=== PATIENT | male | born 1940 | race Caucasian/White ===

== ENCOUNTER 2022-04-14 06:31 | Inpatient (IN) | payer MEDICARE, OTHER ==
[2022-04-14] MEDS ORDERED: Acetaminophen 650 MG Supp ONE (06:46)
[2022-04-14] MEDS ORDERED: Acetaminophen 650 MG Supp RECTAL ONE (07:18)
[2022-04-14 07:42] LABS: CHLORIDE,CL 102 mEq/L (98-106); SODIUM,NA 138 mEq/L (136-145)
[2022-04-14 07:49] LABS: ESTIMATED GFR 55 mL/min (>=60)
[2022-04-14] MEDS ORDERED: Sodium Chloride 0.9% 1,000 ML IV STA (07:50)
[2022-04-14] MEDS ORDERED: cefTRIAXone 1 GM Vial IVPUSH ONE (08:03)
[2022-04-14 08:23] LABS: CORONAVIRUS COVID-19 NAA POSITIVE (NEGATIVE)
[2022-04-14] MEDS ORDERED: Sodium Chloride 0.9% 500 ML IV STA (08:36)
[2022-04-14] MEDS ORDERED: Acetaminophen 325 MG Tab PO PRN (10:00)
[2022-04-14] MEDS ORDERED: Ondansetron 4 MG/2 ML SDV IV PRN (10:00)
[2022-04-14] MEDS ORDERED: Ibuprofen 200 MG Tab PO PRN (10:00)
[2022-04-14] MEDS ORDERED: ALPRAZolam 0.25 MG Tab PO PRN (10:12)
[2022-04-14] MEDS ORDERED: REMDESIVIR 200 MG in Sodium Chloride 0.9% 250 ML IV ONE (10:12)
[2022-04-14] MEDS: Dexamethasone 4 MG Tab PO SCH (10:48)
[2022-04-14] MEDS: Metoprolol Succinate 25 MG Tab.ER PO SCH (10:49)
[2022-04-14] MEDS: Carbidopa/Levodopa 25-100 MG Tab PO SCH ×3 (11:03→20:50)
[2022-04-14] MEDS: Pantoprazole 40 MG Tab.CR PO SCH (11:53)
[2022-04-14] MEDS: Azithromycin 500 MG in Sodium Chloride 0.9% 250 ML IV SCH (11:53)
[2022-04-14] MEDS: Pramipexole 0.5 MG Tab PO SCH ×2 (17:49→19:39)
[2022-04-14] MEDS: Simvastatin 20 MG Tab PO SCH (20:50)
[2022-04-14] MEDS: Polyethylene Glycol 3350 Powder 17 GM Packet PO SCH (20:50)
[2022-04-14] MEDS: Enoxaparin 40 MG/0.4 ML Syringe SUBCUT SCH (20:50)
[2022-04-15] MEDS ORDERED: Non-Formulary Medication 1 Each (Niacin [Niacin] 500 MG Tablet) PO SCH (08:00)
[2022-04-15] MEDS ORDERED: Polyethylene Glycol 3350 Powder 17 GM Packet PO SCH (08:00)
[2022-04-15] MEDS: Polyethylene Glycol 3350 Powder 17 GM Packet PO SCH ×2 (08:23→20:05)
[2022-04-15] MEDS: Pantoprazole 40 MG Tab.CR PO SCH (08:23)
[2022-04-15] MEDS: Pramipexole 0.5 MG Tab PO SCH ×3 (08:24→20:06)
[2022-04-15] MEDS: Multivitamin Tab PO SCH (08:24)
[2022-04-15] MEDS: Dexamethasone 4 MG Tab PO SCH (08:24)
[2022-04-15] MEDS: Metoprolol Succinate 25 MG Tab.ER PO SCH (08:25)
[2022-04-15] MEDS: Aspirin 81 MG Tab.Chew PO SCH (08:25)
[2022-04-15] MEDS: Vitamin E (dl-alpha-tocopherol acetate) 400 Unit Cap PO SCH (08:25)
[2022-04-15] MEDS: REMDESIVIR 100 MG in Sodium Chloride 0.9% 100 ML IV SCH (08:26)
[2022-04-15] MEDS: Carbidopa/Levodopa 25-100 MG Tab PO SCH ×4 (08:28→20:03)
[2022-04-15] MEDS: cefTRIAXone 1 GM Vial IVPUSH SCH (09:56)
[2022-04-15] MEDS: Azithromycin 500 MG in Sodium Chloride 0.9% 250 ML IV SCH (09:56)
[2022-04-15 11:49] LABS: CHLORIDE,CL 105 mEq/L (98-106); SODIUM,NA 141 mEq/L (136-145)
[2022-04-15 11:58] LABS: ESTIMATED GFR 67 mL/min (>=60)
[2022-04-15] MEDS: Enoxaparin 40 MG/0.4 ML Syringe SUBCUT SCH (20:03)
[2022-04-16] MEDS: Dexamethasone 4 MG Tab PO SCH (07:38)
[2022-04-16] MEDS: Aspirin 81 MG Tab.Chew PO SCH (07:38)
[2022-04-16] MEDS: Metoprolol Succinate 25 MG Tab.ER PO SCH (07:39)
[2022-04-16] MEDS: Carbidopa/Levodopa 25-100 MG Tab PO SCH ×4 (07:39→19:45)
[2022-04-16] MEDS: Pramipexole 0.5 MG Tab PO SCH ×3 (07:39→19:43)
[2022-04-16] MEDS: Multivitamin Tab PO SCH (07:40)
[2022-04-16] MEDS: REMDESIVIR 100 MG in Sodium Chloride 0.9% 100 ML IV SCH (07:40)
[2022-04-16] MEDS: Pantoprazole 40 MG Tab.CR PO SCH (07:40)
[2022-04-16] MEDS: Vitamin E (dl-alpha-tocopherol acetate) 400 Unit Cap PO SCH (07:40)
[2022-04-16] MEDS: Polyethylene Glycol 3350 Powder 17 GM Packet PO SCH ×2 (07:41→19:45)
[2022-04-16] MEDS: Lisinopril 20 MG Tab PO SCH ×2 (08:32→19:46)
[2022-04-16] MEDS: cefTRIAXone 1 GM Vial IVPUSH SCH (09:48)
[2022-04-16] MEDS: Azithromycin 500 MG in Sodium Chloride 0.9% 250 ML IV SCH (09:49)
[2022-04-16] MEDS: Simvastatin 20 MG Tab PO SCH (19:45)
[2022-04-16] MEDS: Enoxaparin 40 MG/0.4 ML Syringe SUBCUT SCH (19:45)
[2022-04-16] MEDS: guaiFENesin 100 MG/5 ML Soln 5 ML UD Cup PO PRN (20:19)
[2022-04-17] MEDS: REMDESIVIR 100 MG in Sodium Chloride 0.9% 100 ML IV SCH (08:57)
[2022-04-17] MEDS: Vitamin E (dl-alpha-tocopherol acetate) 400 Unit Cap PO SCH (08:58)
[2022-04-17] MEDS: Carbidopa/Levodopa 25-100 MG Tab PO SCH ×4 (08:58→19:15)
[2022-04-17] MEDS: Polyethylene Glycol 3350 Powder 17 GM Packet PO SCH ×2 (08:58→19:15)
[2022-04-17] MEDS: Lisinopril 20 MG Tab PO SCH ×2 (08:59→19:15)
[2022-04-17] MEDS: Metoprolol Succinate 25 MG Tab.ER PO SCH (08:59)
[2022-04-17] MEDS: Dexamethasone 4 MG Tab PO SCH (08:59)
[2022-04-17] MEDS: Pantoprazole 40 MG Tab.CR PO SCH (08:59)
[2022-04-17] MEDS: Aspirin 81 MG Tab.Chew PO SCH (08:59)
[2022-04-17] MEDS: Multivitamin Tab PO SCH (08:59)
[2022-04-17] MEDS: Pramipexole 0.5 MG Tab PO SCH ×3 (09:00→19:15)
[2022-04-17] MEDS: cefTRIAXone 1 GM Vial IVPUSH SCH (09:03)
[2022-04-17] MEDS: Azithromycin 500 MG in Sodium Chloride 0.9% 250 ML IV SCH (09:35)
[2022-04-17] MEDS: Enoxaparin 40 MG/0.4 ML Syringe SUBCUT SCH (19:15)
[2022-04-17] MEDS: guaiFENesin 100 MG/5 ML Soln 5 ML UD Cup PO PRN (21:21)
[2022-04-18] MEDS: REMDESIVIR 100 MG in Sodium Chloride 0.9% 100 ML IV SCH (08:02)
[2022-04-18] MEDS: Carbidopa/Levodopa 25-100 MG Tab PO SCH ×2 (08:06→11:00)
[2022-04-18] MEDS: Pramipexole 0.5 MG Tab PO SCH (08:07)
[2022-04-18] MEDS: Multivitamin Tab PO SCH (08:09)
[2022-04-18] MEDS: Dexamethasone 4 MG Tab PO SCH (08:09)
[2022-04-18] MEDS: Polyethylene Glycol 3350 Powder 17 GM Packet PO SCH (08:10)
[2022-04-18] MEDS: Aspirin 81 MG Tab.Chew PO SCH (08:10)
[2022-04-18] MEDS: Pantoprazole 40 MG Tab.CR PO SCH (08:11)
[2022-04-18] MEDS: Vitamin E (dl-alpha-tocopherol acetate) 400 Unit Cap PO SCH (08:12)
[2022-04-18] MEDS: Metoprolol Succinate 25 MG Tab.ER PO SCH (08:32)
[2022-04-18] MEDS: Lisinopril 20 MG Tab PO SCH (08:33)
[2022-04-18] MEDS: Azithromycin 500 MG in Sodium Chloride 0.9% 250 ML IV SCH (10:53)
[2022-04-18] MEDS: cefTRIAXone 1 GM Vial IVPUSH SCH (10:54)
== END 2022-04-18 13:00 | disposition home or self-care (01) | DRG 177 ==
LOC: CC.ED 06:31 → UNDOADMIN 09:20 → CC.MS 09:20
PROVIDERS: ADMIT Nurse Practitioner Family; ATTEND Nurse Practitioner Family
PROC: XW033E5 Introduction of Remdesivir Anti-infective into Peripheral Vein, Percutaneous Approach, New Technology Group 5 (ICD-10-PCS; principal; 2022-04-14)
PROC: 3E0333Z Introduction of Anti-inflammatory into Peripheral Vein, Percutaneous Approach (ICD-10-PCS; 2022-04-14)
DX: U07.1 COVID-19 (principal); J18.9 Pneumonia, unspecified organism; I10 Essential (primary) hypertension; E78.5 Hyperlipidemia, unspecified; G20 Parkinson's disease; D72.829 Elevated white blood cell count, unspecified; T38.0X5A Adverse effect of glucocorticoids and synthetic analogues, initial encounter; Z79.82 Long term (current) use of aspirin; Z79.899 Other long term (current) drug therapy
CPT/HCPCS: 0240U; 36415; 71045; 80053; 81001; 82248; 83605; 83735; 85025; 87040; 87070; 87205; 93010; 96361; 96374; 97110-GP; 97161-GP; 99223; 99232; 99233; 99238; 99285-25; A9270-GY; J0456; J0696; J1650; J7030; J7050; J8540

== ENCOUNTER 2023-06-16 10:13 | Emergency (ER) | payer MEDICARE, OTHER ==
[2023-06-16] MEDS ORDERED: fentaNYL 50 MCG/ML SDV IVPUSH ONE ×2 (12:18→13:50)
[2023-06-16] MEDS ORDERED: Naloxone 2 MG/2 ML Syringe IVPUSH PRN (12:18)
== END 2023-06-16 13:55 ==
LOC: CC.ED 10:13
DX: S72.142A Displaced intertrochanteric fracture of left femur, initial encounter for closed fracture (principal); I10 Essential (primary) hypertension; E78.00 Pure hypercholesterolemia, unspecified; K21.9 Gastro-esophageal reflux disease without esophagitis; Z87.891 Personal history of nicotine dependence; Z79.899 Other long term (current) drug therapy; W01.0XXA Fall on same level from slipping, tripping and stumbling without subsequent striking against object, initial encounter; Y93.01 Activity, walking, marching and hiking; Y92.015 Private garage of single-family (private) house as the place of occurrence of the external cause
CPT/HCPCS: 51702; 71101-LT; 96374; 96376; 99284; 99285-25; J3010

== ENCOUNTER 2023-06-26 19:29 | Inpatient (IN) | payer MEDICARE, OTHER ==
[2023-06-26] MEDS ORDERED: Albuterol/Ipratropium 3.0-0.5 MG/3 ML Neb Soln NEB ONE (19:31)
[2023-06-26] MEDS ORDERED: Sodium Chloride 0.9% 1,000 ML IV ONE (19:31)
[2023-06-26] MEDS ORDERED: Piperacillin/Tazobactam 4.5 GM in Sodium Chloride 0.9% 100 ML IV ONE (19:31)
[2023-06-26 20:22] LABS: BASOPHILS ABSOLUTE AUTO 0.03 10^3/uL (0.00-0.50); BASOPHILS PERCENT AUTO 0.2 % (0-1); EOSINOPHILS ABSOLUTE AUTO 0.01 10^3/uL (0.00-1.50); EOSINOPHILS PERCENT AUTO 0.1 % (0-6); HEMATOCRIT 28.2 % (42.0-52.0); IMMATURE GRAN ABSOLUTE AUTO 0.04 10^3/uL (0.00-0.49); IMMATURE GRAN PERCENT AUTO 0.2 % (0.0-4.9); LYMPHOCYTES ABSOLUTE AUTO 0.64 10^3/uL (0.60-5.00); LYMPHOCYTES PERCENT AUTO 3.9 % (24-44); MEAN CORPUSCULAR HEMOGLOBIN 30.8 pg (27.0-32.0); MEAN CORPUSCULAR HGB CONC 31.9 g/dL (32.0-36.0); MEAN CORPUSCULAR VOLUME 96.6 fL (83.0-97.0); MONOCYTES ABSOLUTE AUTO 0.52 10^3/uL (0.00-1.50); MONOCYTES PERCENT AUTO 3.2 % (0-10); NEUTROPHILS ABSOLUTE AUTO 15.26 x10^3/uL (1.80-8.00); NEUTROPHILS PERCENT AUTO 92.4 % (41-71); PLATELET COUNT,PLT 468 10^3/uL (150-400); RED BLOOD CELL COUNT 2.92 x10^6/uL (4.50-6.00); WHITE BLOOD CELL COUNT,WBC 16.5 10^3/uL (4.0-11.0)
[2023-06-26] MEDS ORDERED: Sodium Chloride 0.9% 500 ML IV SCH (20:45)
[2023-06-26 21:01] LABS: ALANINE AMINOTRANSFERASE,ALT 15 U/L (12-78); ALBUMIN 2.4 g/dL (3.4-5.0); ALKALINE PHOSPHATASE 220 U/L (46-116); ASPARTATE AMNIOTRANSFERASE,AST 40 U/L (15-37); BILIRUBIN TOTAL 0.9 mg/dL (0.0-1.0); BLOOD UREA NITROGEN,BUN 51 mg/dL (7-18); CALCIUM 8.5 mg/dL (8.4-10.1); CARBON DIOXIDE,CO2 22 mmol/L (21-32); CHLORIDE,CL 105 mEq/L (98-106); CREATININE 1.3 mg/dL (0.7-1.3); ESTIMATED GFR 54 mL/min (>=60); GLUCOSE RANDOM 114 mg/dL (75-99); MAGNESIUM 2.2 mg/dL (1.8-2.4); POTASSIUM,K 4.3 mEq/L (3.5-5.0); PROTEIN TOTAL,TP 6.1 g/dL (6.4-8.2); SODIUM,NA 140 mEq/L (136-145)
[2023-06-26] MEDS ORDERED: Polyethylene Glycol 3350 Powder 17 GM Packet PO PRN (22:14)
[2023-06-26] MEDS ORDERED: Ondansetron 4 MG/2 ML SDV IV PRN (22:14)
[2023-06-26] MEDS ORDERED: Acetaminophen 650 MG Supp RECTAL PRN (22:14)
[2023-06-26] MEDS ORDERED: Docusate Sodium 100 MG Cap PO PRN (22:14)
[2023-06-26] MEDS ORDERED: Albuterol 0.083% 2.5 MG/3 ML Neb Soln NEB PRN (22:14)
[2023-06-26] MEDS ORDERED: Sodium Chloride 0.9% 1,000 ML IV SCH (22:15)
[2023-06-26] MEDS ORDERED: Enoxaparin 30 MG/0.3 ML Syringe SUBCUT SCH (22:30)
[2023-06-26] MEDS: Albuterol/Ipratropium 3.0-0.5 MG/3 ML Neb Soln NEB SCH (22:48)
[2023-06-26 23:01] LABS: APPEARANCE,URINE CLEAR (CLEAR); BILIRUBIN,URINE NEGATIVE (NEGATIVE); COLOR,URINE YELLOW (YELLOW); GLUCOSE,URINE NEGATIVE (NEGATIVE); KETONES,URINE NEGATIVE (NEGATIVE); LEUKOCYTE ESTERASE,URINE NEGATIVE (NEGATIVE); NITRITE,URINE NEGATIVE (NEGATIVE); OCCULT BLOOD,URINE LARGE (NEGATIVE); PROTEIN,URINE 30 mg/dL (NEGATIVE)
[2023-06-26 23:08] LABS: BACTERIA,URINE MANY /HPF (NOT SEEN); EPITHELIAL CELLS,URINE RARE /HPF (NOT SEEN); RBC,URINE 50-75 /HPF (0-5)
[2023-06-27] MEDS: Albuterol/Ipratropium 3.0-0.5 MG/3 ML Neb Soln NEB SCH (02:11)
[2023-06-27] MEDS ORDERED: Piperacillin/Tazobactam 3.375 GM in Sodium Chloride 0.9% 100 ML IV SCH (04:00)
[2023-06-27 04:36] VITALS: BP 130/59; PULSE 109
== END 2023-06-27 04:25 | DRG 871 ==
LOC: CC.ED 19:29 → CC.MS 20:53 → UNDOADMIN 20:53 → CC.MS 22:03 → UNDODISIN 06-27 04:25
PROVIDERS: ADMIT Nurse Practitioner; ATTEND Nurse Practitioner
DX: A41.9 Sepsis, unspecified organism (principal); J69.0 Pneumonitis due to inhalation of food and vomit; J96.01 Acute respiratory failure with hypoxia; J93.9 Pneumothorax, unspecified; R65.20 Severe sepsis without septic shock; R79.89 Other specified abnormal findings of blood chemistry; I95.9 Hypotension, unspecified; D72.829 Elevated white blood cell count, unspecified; R50.9 Fever, unspecified; G20.A1 Parkinson's disease without dyskinesia, without mention of fluctuations; I10 Essential (primary) hypertension; E78.00 Pure hypercholesterolemia, unspecified; K21.9 Gastro-esophageal reflux disease without esophagitis; Z79.899 Other long term (current) drug therapy
CPT/HCPCS: 36415; 51702; 71045; 80053; 81001; 82800; 83605; 83735; 84484; 85025; 87040; 87086; 87088; 87186; 93005; 93010; 94640; 96361; 96365; 99285-25; A9270-GY; J1650; J2543; J3490; J7030; J7040; J7620-GY; U0002

== ENCOUNTER 2023-08-06 15:40 | Inpatient (IN) | payer MEDICARE, OTHER ==
[2023-08-06] MEDS ORDERED: Piperacillin/Tazobactam 4.5 GM in Sodium Chloride 0.9% 100 ML IV ONE (15:50)
[2023-08-06] MEDS ORDERED: Albuterol/Ipratropium 3.0-0.5 MG/3 ML Neb Soln NEB ONE (15:50)
[2023-08-06] MEDS ORDERED: methylPREDNISolone Sodium Succinate 125 MG/2 ML SDV IVPUSH STA (15:50)
[2023-08-06 16:16] LABS: BASOPHILS ABSOLUTE AUTO 0.04 10^3/uL (0.00-0.50); BASOPHILS PERCENT AUTO 0.3 % (0-1); HEMATOCRIT 29.2 % (42.0-52.0); HEMOGLOBIN 9.2 g/dL (14.0-18.0); IMMATURE GRAN ABSOLUTE AUTO 0.02 10^3/uL (0.00-0.49); IMMATURE GRAN PERCENT AUTO 0.1 % (0.0-4.9); LYMPHOCYTES ABSOLUTE AUTO 1.11 10^3/uL (0.60-5.00); LYMPHOCYTES PERCENT AUTO 7.2 % (24-44); MEAN CORPUSCULAR HEMOGLOBIN 28.8 pg (27.0-32.0); MEAN CORPUSCULAR HGB CONC 31.5 g/dL (32.0-36.0); MEAN CORPUSCULAR VOLUME 91.5 fL (83.0-97.0); MONOCYTES ABSOLUTE AUTO 0.75 10^3/uL (0.00-1.50); MONOCYTES PERCENT AUTO 4.9 % (0-10); NEUTROPHILS ABSOLUTE AUTO 13.47 x10^3/uL (1.80-8.00); NEUTROPHILS PERCENT AUTO 87.5 % (41-71); PLATELET COUNT,PLT 384 10^3/uL (150-400); RED BLOOD CELL COUNT 3.19 x10^6/uL (4.50-6.00); WHITE BLOOD CELL COUNT,WBC 15.4 10^3/uL (4.0-11.0)
[2023-08-06 16:37] LABS: ALANINE AMINOTRANSFERASE,ALT 20 U/L (12-78); ALKALINE PHOSPHATASE 188 U/L (46-116); ASPARTATE AMNIOTRANSFERASE,AST 41 U/L (15-37); BILIRUBIN TOTAL 0.6 mg/dL (0.0-1.0); BLOOD UREA NITROGEN,BUN 44 mg/dL (7-18); CALCIUM 8.4 mg/dL (8.4-10.1); CARBON DIOXIDE,CO2 28 mmol/L (21-32); CHLORIDE,CL 97 mEq/L (98-106); CREATININE 1.1 mg/dL (0.7-1.3); GLUCOSE RANDOM 115 mg/dL (75-99); MAGNESIUM 1.8 mg/dL (1.8-2.4); POTASSIUM,K 4.5 mEq/L (3.5-5.0); PROTEIN TOTAL,TP 6.8 g/dL (6.4-8.2); SODIUM,NA 133 mEq/L (136-145)
[2023-08-06 16:43] LABS: ESTIMATED GFR 66 mL/min (>=60)
[2023-08-06] MEDS ORDERED: Albuterol 0.083% 2.5 MG/3 ML Neb Soln NEB PRN (18:49)
[2023-08-06] MEDS ORDERED: Acetaminophen 650 MG Supp RECTAL PRN (18:49)
[2023-08-06] MEDS ORDERED: Polyethylene Glycol 3350 Powder 17 GM Packet PO PRN (18:49)
[2023-08-06] MEDS ORDERED: Sodium Chloride 0.9% 1,000 ML IV SCH (18:49)
[2023-08-06] MEDS ORDERED: Docusate Sodium 100 MG Cap PO PRN (18:49)
[2023-08-06] MEDS ORDERED: Ondansetron 4 MG/2 ML SDV IV PRN (18:49)
[2023-08-06] MEDS: Furosemide 40 MG/4 ML VIAL IVPUSH SCH (19:43)
[2023-08-06] MEDS: Albuterol/Ipratropium 3.0-0.5 MG/3 ML Neb Soln NEB SCH (19:45)
[2023-08-06 21:16] LABS: APPEARANCE,URINE CLEAR (CLEAR); BILIRUBIN,URINE NEGATIVE (NEGATIVE); COLOR,URINE YELLOW (YELLOW); GLUCOSE,URINE NEGATIVE (NEGATIVE); KETONES,URINE NEGATIVE (NEGATIVE); LEUKOCYTE ESTERASE,URINE NEGATIVE (NEGATIVE); NITRITE,URINE NEGATIVE (NEGATIVE); OCCULT BLOOD,URINE TRACE-INTACT (NEGATIVE); PROTEIN,URINE NEGATIVE (NEGATIVE); UROBILINOGEN,URINE 0.2 EU/dL (0.2-1.0)
[2023-08-06 21:23] LABS: BACTERIA,URINE NOT SEEN /HPF (NOT SEEN); EPITHELIAL CELLS,URINE NOT SEEN /HPF (NOT SEEN); MUCUS,URINE NOT SEEN /HPF (NOT SEEN); RBC,URINE NOT SEEN /HPF (0-5); WBC,URINE NOT SEEN /HPF (0-5)
[2023-08-06] MEDS: Piperacillin/Tazobactam 3.375 GM in Sodium Chloride 0.9% 100 ML IV SCH (23:11)
[2023-08-07] MEDS: Piperacillin/Tazobactam 3.375 GM in Sodium Chloride 0.9% 100 ML IV SCH ×3 (04:46→21:18)
[2023-08-07] MEDS: Albuterol/Ipratropium 3.0-0.5 MG/3 ML Neb Soln NEB SCH ×4 (08:01→21:03)
[2023-08-07] MEDS: methylPREDNISolone Sodium Succinate 40 MG/1 ML SDV IVPUSH SCH (08:01)
[2023-08-07 08:05] LABS: CALCIUM 9.1 mg/dL (8.4-10.1); CREATININE 1.4 mg/dL (0.7-1.3); EST CRCL DRUG DOSING (CG) 29.48 mL/min; MAGNESIUM 1.9 mg/dL (1.8-2.4); POTASSIUM,K 4.2 mEq/L (3.5-5.0)
[2023-08-07 08:10] LABS: BASOPHILS ABSOLUTE AUTO 0.02 10^3/uL (0.00-0.50); BASOPHILS PERCENT AUTO 0.1 % (0-1); HEMATOCRIT 28.9 % (42.0-52.0); HEMOGLOBIN 9.3 g/dL (14.0-18.0); IMMATURE GRAN ABSOLUTE AUTO 0.01 10^3/uL (0.00-0.49); IMMATURE GRAN PERCENT AUTO 0.1 % (0.0-4.9); LYMPHOCYTES PERCENT AUTO 4.9 % (24-44); MEAN CORPUSCULAR HEMOGLOBIN 29.2 pg (27.0-32.0); MEAN CORPUSCULAR HGB CONC 32.2 g/dL (32.0-36.0); MEAN CORPUSCULAR VOLUME 90.6 fL (83.0-97.0); MONOCYTES ABSOLUTE AUTO 0.36 10^3/uL (0.00-1.50); MONOCYTES PERCENT AUTO 2.2 % (0-10); NEUTROPHILS ABSOLUTE AUTO 14.99 x10^3/uL (1.80-8.00); NEUTROPHILS PERCENT AUTO 92.7 % (41-71); PLATELET COUNT,PLT 408 10^3/uL (150-400); RED BLOOD CELL COUNT 3.19 x10^6/uL (4.50-6.00); WHITE BLOOD CELL COUNT,WBC 16.2 10^3/uL (4.0-11.0)
[2023-08-07] MEDS: Nystatin Topical Powder 15 GM Bottle TOP SCH ×2 (14:26→21:16)
[2023-08-07] MEDS ORDERED: Polyethylene Glycol 3350 Powder 17 GM Packet GTUBE PRN (15:58)
[2023-08-07] MEDS ORDERED: Hyoscyamine 0.125 MG Tab.SL PEGTUBE PRN (16:15)
[2023-08-07] MEDS: Carbidopa/Levodopa 25-100 MG Tab GTUBE SCH ×2 (16:38→21:09)
[2023-08-07] MEDS ORDERED: Hypromellose 0.3% Ophth Soln 15 ML Bottle EYEBOTH PRN (16:39)
[2023-08-07] MEDS: Furosemide 40 MG/4 ML VIAL IVPUSH SCH (19:05)
[2023-08-07] MEDS ORDERED: Melatonin 3 MG Tab GTUBE SCH (20:00)
[2023-08-07] MEDS ORDERED: PRAMIPEXOLE DI HCL 0.25 MG GTUBE SCH (20:00)
[2023-08-07] MEDS: Meclizine 12.5 MG Tab GTUBE SCH (21:09)
[2023-08-07] MEDS: Pramipexole 0.5 MG Tab GTUBE SCH (21:09)
[2023-08-07] MEDS: ALPRAZolam 0.25 MG Tab GTUBE SCH (21:09)
[2023-08-08] MEDS: Piperacillin/Tazobactam 3.375 GM in Sodium Chloride 0.9% 100 ML IV SCH (04:52)
[2023-08-08] MEDS: ALPRAZolam 0.25 MG Tab GTUBE SCH (07:45)
[2023-08-08] MEDS: Meclizine 12.5 MG Tab GTUBE SCH (07:45)
[2023-08-08] MEDS: Carbidopa/Levodopa 25-100 MG Tab GTUBE SCH ×2 (07:45→12:11)
[2023-08-08] MEDS: Pramipexole 0.5 MG Tab GTUBE SCH (07:47)
[2023-08-08] MEDS ORDERED: Sertraline 100 MG Tab GTUBE SCH (08:00)
[2023-08-08] MEDS ORDERED: Loratadine 10 MG Tab GTUBE SCH (08:00)
[2023-08-08] MEDS ORDERED: Beta-Carotene (Vitamin A) w/Vitamin C & E plus Minerals Tab GTUBE SCH (08:00)
[2023-08-08] MEDS ORDERED: FIBER GTUBE SCH ×2 (08:00→14:00)
[2023-08-08] MEDS ORDERED: Lidocaine 4% 1 each Patch TOP SCH (08:00)
[2023-08-08] MEDS ORDERED: Metoprolol Tartrate 25 MG Tab GTUBE SCH (08:00)
[2023-08-08] MEDS ORDERED: LACTOSE REDUCED FOOD GTUBE SCH ×2 (08:00→14:00)
[2023-08-08] MEDS: methylPREDNISolone Sodium Succinate 40 MG/1 ML SDV IVPUSH SCH (08:02)
[2023-08-08] MEDS: Nystatin Topical Powder 15 GM Bottle TOP SCH (08:28)
[2023-08-08] MEDS: Albuterol/Ipratropium 3.0-0.5 MG/3 ML Neb Soln NEB SCH ×2 (08:33→12:11)
[2023-08-08 09:38] LABS: BASOPHILS ABSOLUTE AUTO 0.01 10^3/uL (0.00-0.50); BASOPHILS PERCENT AUTO 0.1 % (0-1); HEMATOCRIT 27.3 % (42.0-52.0); HEMOGLOBIN 8.6 g/dL (14.0-18.0); IMMATURE GRAN ABSOLUTE AUTO 0.03 10^3/uL (0.00-0.49); IMMATURE GRAN PERCENT AUTO 0.2 % (0.0-4.9); LYMPHOCYTES ABSOLUTE AUTO 0.74 10^3/uL (0.60-5.00); LYMPHOCYTES PERCENT AUTO 4.5 % (24-44); MEAN CORPUSCULAR HEMOGLOBIN 28.9 pg (27.0-32.0); MEAN CORPUSCULAR HGB CONC 31.5 g/dL (32.0-36.0); MEAN CORPUSCULAR VOLUME 91.6 fL (83.0-97.0); MONOCYTES ABSOLUTE AUTO 0.79 10^3/uL (0.00-1.50); MONOCYTES PERCENT AUTO 4.8 % (0-10); NEUTROPHILS ABSOLUTE AUTO 15.04 x10^3/uL (1.80-8.00); NEUTROPHILS PERCENT AUTO 90.4 % (41-71); PLATELET COUNT,PLT 356 10^3/uL (150-400); RED BLOOD CELL COUNT 2.98 x10^6/uL (4.50-6.00); WHITE BLOOD CELL COUNT,WBC 16.6 10^3/uL (4.0-11.0)
[2023-08-08 09:49] LABS: CALCIUM 8.7 mg/dL (8.4-10.1); CREATININE 1.3 mg/dL (0.7-1.3); EST CRCL DRUG DOSING (CG) 32.06 mL/min; MAGNESIUM 2.1 mg/dL (1.8-2.4); POTASSIUM,K 3.9 mEq/L (3.5-5.0)
== END 2023-08-08 12:53 | disposition home or self-care (01) | DRG 189 ==
LOC: CC.ED 15:40 → SUPCPDRO 15:40 → CC.MS 16:40 → UNDOADMIN 17:01 → CC.MS 17:01
PROVIDERS: ADMIT Nurse Practitioner; ATTEND Nurse Practitioner
DX: J96.01 Acute respiratory failure with hypoxia (principal); J18.9 Pneumonia, unspecified organism; J69.0 Pneumonitis due to inhalation of food and vomit; I11.0 Hypertensive heart disease with heart failure; Z66 Do not resuscitate; I50.9 Heart failure, unspecified; D72.828 Other elevated white blood cell count; R79.89 Other specified abnormal findings of blood chemistry; Z51.5 Encounter for palliative care; G20.A1 Parkinson's disease without dyskinesia, without mention of fluctuations; E78.00 Pure hypercholesterolemia, unspecified; K21.9 Gastro-esophageal reflux disease without esophagitis; Z93.1 Gastrostomy status; Z20.822 Contact with and (suspected) exposure to COVID-19; Z11.52 Encounter for screening for COVID-19; Z79.899 Other long term (current) drug therapy
CPT/HCPCS: 36415; 71045; 80048; 80053; 81001; 83605; 83735; 83880; 84484; 85025; 87040; 87070; 87205; 87804; 93005; 93010; 94640; 96374; 99223; 99233; 99238; 99285-25; A9270-GY; J1940; J2543; J2920; J2930; J3490; J7030; J7620-GY; U0002